=== PATIENT | male | born 1960 | race Caucasian/White ===

== ENCOUNTER 2021-06-28 08:45 | Inpatient (IN) ==
[~2021-06-28 08:45] MED LIST: Buffered Lidocaine 1% SYRIN 1 ml INTRADERM ONE; DiMENhydriNATE IV 50 mg/ml 1 ml VIAL IV PUSH ONE; HYDROcodone/ACETAMIN 5/325 mg TAB PO PRN; Lactated Ringers 1000 ml BAG 1,000 ML IV SCH; Metoclopramide 5 MG/ML VIAL (10 mg) IV PRN; Naloxone 0.4 mg VIAL 0.4 mg/ml 1 ml VIAL IV PRN; Ondansetron 4 mg VIAL 2 MG/ML 2 ml VIAL IV PRN; fentaNYL 100 mcg/2 ml 50 MCG/ML VIAL IV PRN
[2021-06-28] MEDS ORDERED: DiMENhydriNATE IV 50 mg/ml 1 ml VIAL ONE (10:20)
[2021-06-28] MEDS ORDERED: ceFAZolin 2 GM in NS PREMIX 2 GM/100 ML BAG IVPB ONE (10:21)
[2021-06-28] MEDS ORDERED: Buffered Lidocaine 1% SYRIN 1 ml INTRADERM ONE (10:21)
[2021-06-28 11:44] LABS: INR 1.02 (0.86-1.15)
[2021-06-28] MEDS ORDERED: Ropivacaine 5 MG/ML 20 ML VIAL 0.5% (100 MG) ONE (12:15)
[2021-06-28] MEDS ORDERED: Propofol 1,000 MG/100 ML BTL ONE (12:31)
[2021-06-28] MEDS ORDERED: Dexamethasone IV 4 MG/ML VIAL 1 ml VIAL ONE (12:34)
[2021-06-28] MEDS ORDERED: Lidocaine 2% PF 5 ML VIAL ONE (12:34)
[2021-06-28] MEDS ORDERED: Ondansetron 4 mg VIAL 2 MG/ML 2 ml VIAL ONE (12:34)
[2021-06-28] MEDS ORDERED: Midazolam 2 mg/2 ml VIAL 1 mg/ml 2 ml VIAL (2 mg) ONE (12:35)
[2021-06-28] MEDS ORDERED: fentaNYL 100 mcg/2 ml 50 MCG/ML VIAL ONE (12:35)
[2021-06-28] MEDS ORDERED: Phenylephrine 40 mcg/mL 10mL (400mcg) SYRINGE ONE (13:25)
[2021-06-28] MEDS ORDERED: Propofol 10 MG/ML 20 ML BTL ONE (13:25)
[2021-06-28] MEDS ORDERED: Phenylephrine IV 10 MG/ML 1 ml VIAL ONE (13:46)
[2021-06-28] MEDS ORDERED: Ondansetron ODT 4 mg TAB 4 MG TAB PO PRN (13:58)
[2021-06-28] MEDS ORDERED: diPHENhydraMINE IV 50 MG/ML 1 ml VIAL (BENADRYL) IV PRN (13:58)
[2021-06-28] MEDS ORDERED: Lactulose 30 ml UDC PO PRN (13:58)
[2021-06-28] MEDS ORDERED: Ondansetron 4 mg VIAL 2 MG/ML 2 ml VIAL IV PRN (13:58)
[2021-06-28] MEDS ORDERED: diPHENhydraMINE 25 mg TAB PO PRN (13:58)
[2021-06-28] MEDS ORDERED: Magnesium Hydroxide LIQ 30 ML UDC PO PRN (13:58)
[2021-06-28] MEDS ORDERED: Morphine 2 MG/ML SYRINGE IV PRN (14:03)
[2021-06-28] MEDS ORDERED: Lactated Ringers 1000 ml BAG 1,000 ML IV SCH (15:00)
[2021-06-28] MEDS: ceFAZolin 1 GM ADVAN 1 GM in NS 0.9% 50 ML 50 ML IVPB SCH (20:17)
[2021-06-28] MEDS: Magnesium Hydroxide LIQ 30 ML UDC PO SCH (20:17)
[2021-06-28] MEDS: Erythromycin OPTH OINT APPLIC OINT LEFT EYE SCH (20:19)
[2021-06-29] MEDS: ceFAZolin 1 GM ADVAN 1 GM in NS 0.9% 50 ML 50 ML IVPB SCH ×2 (04:40→12:08)
[2021-06-29 06:45] LABS: Hematocrit 35 % (42-52); Hemoglobin 12.3 g/dL (14.0-18.0); Mean Platelet Volume 7.2 fL (7.4-10.4); Platelet Count 249 10^3/uL (150-450)
[2021-06-29 07:09] LABS: Calcium 8.9 mg/dL (8.6-10.3); EGFR African American 108.3 (>60); EGFR Non-African American 89.5 (>60); Potassium 4.1 mmol/L (3.5-5.0)
[2021-06-29] MEDS: Erythromycin OPTH OINT APPLIC OINT LEFT EYE SCH (07:59)
[2021-06-29] MEDS: Magnesium Hydroxide LIQ 30 ML UDC PO SCH (08:02)
[2021-06-29] MEDS ORDERED: Vitamin THERAPEUTIC TAB PO SCH (09:00)
[2021-06-29] MEDS ORDERED: Latanoprost 0.005% 2.5 ml BTL BOTH EYES SCH (09:00)
[2021-06-29 11:42] VITALS: BP 124/68
== END 2021-06-29 13:35 | disposition home or self-care (01) | DRG 301 ==
LOC: AA 10:02 → SSU 17:39
PROVIDERS: ADMIT Orthopaedic Surgery Adult Reconstructive Orthopaedic Surgery; ATTEND Orthopaedic Surgery Adult Reconstructive Orthopaedic Surgery